=== PATIENT | female | born 2000 | race Asian ===

== ENCOUNTER 2023-03-03 11:00 | Emergency (ER) | payer MEDICAID ==
[~2023-03-03] VITALS: Ht 157.5 cm; Wt 45.7 kg
[~2023-03-03 11:00] MED LIST: CEFD300C3 PO
[2023-03-03 11:04] VITALS: BP 112/69; PULSE 83; RESP 18; O2SAT 98
[2023-03-03] MEDS ORDERED: TRIA15CR61 TP (11:55)
--- NOTE | 2023-03-03 12:00 | NUR ---
Provider assement prior to nursing assessment. [id number]
--- NOTE | 2023-03-03 12:19 | NUR ---
pt airway patent and unlabored, pt pulse rate normal and wnl pt speaking without and signs of distress, no major health issues, heart problems or respiratory illnesses
[2023-03-03 14:11] VITALS: TEMP 99.1
== END 2023-03-03 14:15 | disposition home or self-care (01) ==
LOC: ER 11:00
DX: L30.8 Other specified dermatitis (principal); Z79.899 Other long term (current) drug therapy
CPT/HCPCS: 99283

== ENCOUNTER 2023-04-20 09:11 | Emergency (ER) | payer MEDICAID ==
[~2023-04-20] VITALS: Ht 157.5 cm; Wt 44.7 kg
[2023-04-20 09:16] VITALS: BP 103/68; PULSE 88; TEMP 98.7; O2SAT 100
[2023-04-20 09:21] VITALS: RESP 16
[2023-04-20 09:37] LABS: CLARITY,URINE CLOUDY (Clear); COLOR,URINE ORANGE (Yellow); URINE HCG NEGATIVE (NEG)
[2023-04-20 09:40] LABS: UA COLLECTION TYPE CLN CATCH MIDSTREAM
[2023-04-20 09:43] LABS: RBC,URINE TNTC /HPF (0-2); SQUAMOUS EPITHELIAL CELL,UR MANY /LPF (FEW); WBC,URINE TNTC /HPF (0-4)
[2023-04-20 09:44] LABS: BACTERIA,URINE 1+ /HPF (Neg); TRANSITIONAL EPI CELLS,URINE FEW /HPF
[2023-04-20] MEDS ORDERED: CEFD300C3 PO (09:53)
== END 2023-04-20 10:03 | disposition home or self-care (01) ==
LOC: ER 09:12
DX: N39.0 Urinary tract infection, site not specified (principal)
CPT/HCPCS: 81001; 81025; 99283

== ENCOUNTER 2023-09-13 13:02 | Outpatient (CLI) | payer MEDICAID | END 2023-09-13 23:59 | disposition home or self-care (01) | LOC: RAD 13:02 | PROVIDERS: ATTEND Nurse Practitioner Obstetrics & Gynecology | DX: O36.80X0 Pregnancy with inconclusive fetal viability, not applicable or unspecified (principal); Z3A.11 11 weeks gestation of pregnancy | CPT/HCPCS: 76801 ==

== ENCOUNTER 2023-09-16 19:31 | Emergency (ER) | payer MEDICAID ==
[~2023-09-16] VITALS: Ht 157.5 cm; Wt 48.0 kg
[2023-09-16 19:36] VITALS: BP 108/75; PULSE 90; RESP 16; TEMP 98.1; O2SAT 99
[2023-09-16 20:10] LABS: BILIRUBIN,URINE NEGATIVE (Neg); CLARITY,URINE SLIGHTLY CLOUDY (Clear); COLOR,URINE STRAW (Yellow); GLUCOSE, URINE NEGATIVE (Neg); KETONES,URINE NEGATIVE (Neg); LEUKOCYTE ESTERASE ,URINE NEGATIVE (Neg); NITRITES, URINE NEGATIVE (Neg); OCCULT BLOOD,URINE NEGATIVE (Neg); PROTEIN,URINE NEGATIVE (Neg); URINE HCG POSITIVE (NEG); UROBILINOGEN,URINE 0.2 E.U/dL (0.2-1.0)
[2023-09-16 20:20] LABS: UA COLLECTION TYPE CLN CATCH MIDSTREAM
[2023-09-16 20:21] LABS: BACTERIA,URINE 2+ /HPF (Neg); RBC,URINE NONE SEEN /HPF (0-2); SQUAMOUS EPITHELIAL CELL,UR MANY /LPF (FEW); WBC,URINE 0-4 /HPF (0-4)
[2023-09-16] MEDS ORDERED: METO10TA3 PO (21:17)
[2023-09-16] MEDS ORDERED: PHEN-716 PO (21:17)
[2023-09-16] MEDS ORDERED: NITR100C6 PO (21:17)
== END 2023-09-16 21:37 | disposition home or self-care (01) ==
LOC: ER 19:32
DX: O26.891 Other specified pregnancy related conditions, first trimester (principal); R30.0 Dysuria; Z79.899 Other long term (current) drug therapy; Z3A.10 10 weeks gestation of pregnancy
CPT/HCPCS: 81001; 81025; 99283

== ENCOUNTER 2023-09-22 17:06 | Emergency (ER) | payer MEDICAID ==
[~2023-09-22] VITALS: Ht 157.5 cm; Wt 48.0 kg
[~2023-09-22 17:06] MED LIST changes: -CEFD300C3 PO; +METO10TA3 PO; +NITR100C6 PO; +PHEN-716 PO
[2023-09-22 18:17] LABS: BASOPHILS % (AUTO) 0.2 % (0-1); EOSINOPHILS # (AUTO) 0.2 X10'3 (0-0.9); EOSINOPHILS % (AUTO) 1.2 % (0-6); HEMATOCRIT 40.4 % (35.0-45.0); HEMOGLOBIN 13.5 g/dl (12.0-16.0); LYMPHOCYTES # (AUTO) 1.5 X10'3 (1.1-4.8); LYMPHOCYTES % (AUTO) 12.2 % (21-51); MEAN CORPUSCULAR HEMOGLOBIN 30.8 PG (27.0-31.0); MEAN CORPUSCULAR HGB CONC 33.3 g/dL (33.0-36.5); MEAN CORPUSCULAR VOLUME 92.6 FL (78-98); MEAN PLATELET VOLUME 8.7 FL (7.4-10.4); MONOCYTES # (AUTO) 0.7 X10'3 (0-0.9); MONOCYTES % (AUTO) 5.5 % (2-12); NEUTROPHILS # (AUTO) 9.8 X10'3 (1.8-7.7); NEUTROPHILS % (AUTO) 80.9 % (42-75); PLATELET COUNT 223 X10'3 (140-440); RED BLOOD COUNT 4.37 X10'6 (4.20-5.60); RED CELL DISTRIBUTION WIDTH 13.8 % (11.5-14.5); WHITE BLOOD COUNT 12.2 X10'3 (4.5-11.0)
[2023-09-22 18:20] LABS: BILIRUBIN,URINE NEGATIVE (Neg); COLOR,URINE YELLOW (Yellow); GLUCOSE, URINE NEGATIVE (Neg); KETONES,URINE NEGATIVE (Neg); LEUKOCYTE ESTERASE ,URINE NEGATIVE (Neg); NITRITES, URINE NEGATIVE (Neg); OCCULT BLOOD,URINE NEGATIVE (Neg); PROTEIN,URINE NEGATIVE (Neg); UROBILINOGEN,URINE 0.2 E.U/dL (0.2-1.0)
[2023-09-22 18:27] LABS: CLARITY,URINE SLIGHTLY CLOUDY (Clear); UA COLLECTION TYPE CLN CATCH MIDSTREAM
[2023-09-22 18:28] LABS: WBC,URINE 0-4 /HPF (0-4)
[2023-09-22 18:29] LABS: AMORPHOUS PHOSPHATES 2+; BACTERIA,URINE NONE SEEN /HPF (Neg); RBC,URINE NONE SEEN /HPF (0-2); SQUAMOUS EPITHELIAL CELL,UR FEW /LPF (FEW)
[2023-09-22 18:43] LABS: ALANINE AMINOTRANSFERASE 18 U/L (12-78); ALBUMIN 3.5 G/DL (3.4-5.0); ALBUMIN/GLOBULIN RATIO 0.9 (1.1-1.5); ALKALINE PHOSPHATASE 53 IU/L (46-116); ANION GAP 12 (8-16); ASPARTATE AMINO TRANSFERASE 17 U/L (10-37); BILIRUBIN,TOTAL 0.2 MG/DL (0.1-1.0); BLOOD UREA NITROGEN 10 MG/DL (7-18); BUN/CREATININE RATIO 23.8 (10.0-20.0); CALCIUM 8.9 MG/DL (8.5-10.1); CHLORIDE 102 MMOL/L (99-107); CREATININE 0.42 MG/DL (0.40-0.90); GLUCOSE 88 MG/DL (70-104); POTASSIUM 3.4 MMOL/L (3.5-5.1); SODIUM 137 MMOL/L (135-145); TOTAL CARBON DIOXIDE 22.6 MMOL/L (24-32); TOTAL PROTEIN 7.3 G/DL (6.4-8.2); eCRCL 155 ML/MIN; eGFR > 90 ML/MIN
[2023-09-22 19:05] LABS: PROTHROMBIN TIME 10.4 SECONDS (9.0-12.0)
[2023-09-22 19:17] LABS: BETA HCG,QUANTITATIVE 63198 mIU/ml
[2023-09-22 19:32] LABS: APTT 28 SECONDS (22-32)
[2023-09-22 20:42] VITALS: BP 103/73; PULSE 84; RESP 14; TEMP 98.4; O2SAT 99
== END 2023-09-22 21:02 | disposition home or self-care (01) ==
LOC: ER 17:06
DX: O20.0 Threatened abortion (principal); Z3A.11 11 weeks gestation of pregnancy; Z79.899 Other long term (current) drug therapy
CPT/HCPCS: 36415; 76801; 80053; 81001; 84702; 85025; 85610; 85730; 86900; 86901; 99284

== ENCOUNTER 2024-08-10 19:26 | Emergency (ER) | payer MEDICAID ==
[~2024-08-10] VITALS: Ht 157.5 cm; Wt 50.0 kg
[~2024-08-10 19:26] MED LIST changes: -METO10TA3 PO
[2024-08-10 20:06] LABS: BASOPHILS % (AUTO) 0.5 % (0-1); EOSINOPHILS # (AUTO) 0.1 X10'3 (0-0.9); HEMATOCRIT 43.7 % (35.0-45.0); HEMOGLOBIN 14.1 g/dl (12.0-16.0); LYMPHOCYTES # (AUTO) 1.6 X10'3 (1.1-4.8); LYMPHOCYTES % (AUTO) 23.8 % (21-51); MEAN CORPUSCULAR HEMOGLOBIN 29.5 PG (27.0-31.0); MEAN CORPUSCULAR HGB CONC 32.4 g/dL (33.0-36.5); MEAN CORPUSCULAR VOLUME 91.1 FL (78-98); MEAN PLATELET VOLUME 8.7 FL (7.4-10.4); MONOCYTES # (AUTO) 0.4 X10'3 (0-0.9); MONOCYTES % (AUTO) 5.6 % (2-12); NEUTROPHILS # (AUTO) 4.6 X10'3 (1.8-7.7); NEUTROPHILS % (AUTO) 68.1 % (42-75); PLATELET COUNT 257 X10'3 (140-440); RED CELL DISTRIBUTION WIDTH 15.8 % (11.5-14.5); WHITE BLOOD COUNT 6.8 X10'3 (4.5-11.0)
[2024-08-10 20:22] LABS: ALANINE AMINOTRANSFERASE 25 U/L (12-78); ALBUMIN 3.8 G/DL (3.4-5.0); ALBUMIN/GLOBULIN RATIO 1.2 (1.1-1.5); ALKALINE PHOSPHATASE 73 IU/L (46-116); ANION GAP 6 (8-16); ASPARTATE AMINO TRANSFERASE 18 U/L (10-37); BILIRUBIN,TOTAL 0.2 MG/DL (0.1-1.0); BLOOD UREA NITROGEN 20 MG/DL (7-18); BUN/CREATININE RATIO 22.7 (10.0-20.0); CALCIUM 8.6 MG/DL (8.5-10.1); CHLORIDE 106 MMOL/L (99-107); CREATININE 0.88 MG/DL (0.40-0.90); GLUCOSE 92 MG/DL (70-104); SODIUM 138 MMOL/L (135-145); TOTAL CARBON DIOXIDE 25.6 MMOL/L (24-32); eCRCL 76 ML/MIN; eGFR 78 ML/MIN
[2024-08-10 20:22] LABS: URINE HCG NEGATIVE (NEG)
[2024-08-10 20:25] LABS: BILIRUBIN,URINE NEGATIVE (Neg); CLARITY,URINE CLEAR (Clear); COLOR,URINE YELLOW (Yellow); GLUCOSE, URINE NEGATIVE (Neg); KETONES,URINE NEGATIVE (Neg); LEUKOCYTE ESTERASE ,URINE NEGATIVE (Neg); NITRITES, URINE NEGATIVE (Neg); OCCULT BLOOD,URINE NEGATIVE (Neg); PROTEIN,URINE NEGATIVE (Neg); UROBILINOGEN,URINE 0.2 E.U/dL (0.2-1.0)
[2024-08-10 20:44] LABS: UA COLLECTION TYPE CLN CATCH MIDSTREAM
[2024-08-10] MEDS ORDERED: NITR100C6 PO (21:03)
[2024-08-10 21:06] VITALS: BP 107/64; PULSE 64; RESP 18; TEMP 98.7; O2SAT 97
[2024-08-10] MEDS: nitrofuran monohydrate/nitrofuran macrocrysal 100 MG (MacroBID) capsule PO ONE (21:06)
== END 2024-08-10 21:12 | disposition home or self-care (01) ==
LOC: ER 19:27
DX: R82.81 Pyuria (principal); Z79.899 Other long term (current) drug therapy
CPT/HCPCS: 36415; 80053; 81003; 81025; 85025; 99283